=== PATIENT | male | born 1950 | race Caucasian/White ===

== ENCOUNTER 2019-08-12 19:47 | Emergency (ER) | payer OTHER ==
[~2019-08-12] VITALS: Ht 182.9 cm; Wt 110.9 kg
[2019-08-12 19:49] VITALS: Ht 182.9 cm; Wt 110.9 kg
[2019-08-12] MEDS ORDERED: INVEGA 3 MG ER T3 MG PO (19:52)
[2019-08-12] MEDS ORDERED: OMEPRAZOLE20 M1 PO (19:52)
[2019-08-12] MEDS ORDERED: [UNRECOGNIZED DRUG - REMARK] (19:53)
[2019-08-12] MEDS ORDERED: UNK BP MED (19:53)
[2019-08-12 20:07] LABS: BASOPHILS 0.3 % (0-2); EOSINOPHILS 4.4 % (0-7); HEMATOCRIT 49.5 % (42.0-54.0); HEMOGLOBIN 16.5 g/dL (13.5-17.5); IMMATURE GRANULOCYTES 0.3 % (0-5); LYMPHOCYTES 26.1 % (15-50); MCH 30.8 pg (26.0-34.0); MCHC 33.3 g/dL (31.0-37.0); MCV 92.4 fL (80.0-100.0); MEAN PLATELET VOLUME 9.4 fL (7.4-10.4); NEUTROPHILS 61.9 % (40-80); PLATELET COUNT 206 10x3/uL (130-400); RBC 5.36 10x6/uL (4.20-6.10); WBC 10.4 10x3/uL (4.8-10.8)
[2019-08-12 20:16] LABS: CALC OSMOLALITY 276 mosm/kg (275-300); CARBON DIOXIDE 23.4 mmol/L (21.0-32.0); CHLORIDE - SERUM 106 mmol/L (98-107); GLUCOSE 130 mg/dL (74-106); POTASSIUM - SERUM 3.8 mmol/L (3.5-5.1); SODIUM 138 mmol/L (136-145); UREA NITROGEN 9 mg/dL (7-18); eGFR NON AFRICAN AMERICAN 79 mL/min (90-120)
[2019-08-12 20:30] LABS: ALBUMIN 3.5 g/dL (3.4-5.0); ALKALINE PHOSPHATASE 91 U/L (30-120); ALT (SGPT) 12 U/L (10-68); BILIRUBIN - TOTAL 0.39 mg/dL (0.2-1.3); MAGNESIUM - SERUM 2.1 mg/dL (1.8-2.4); PRO BNP 28 pg/mL (0-125); PROTEIN - SERUM 6.8 g/dL (6.4-8.2); TROPONIN-I < 0.017 ng/mL (0.000-0.060)
[2019-08-12] MEDS ORDERED: COMBIVENT RESPIM4 GM INH (22:14)
[2019-08-12] MEDS ORDERED: PROAIR HFA8.5 G1 INH (22:15)
[2019-08-12] MEDS ORDERED: AZITHROMYCIN500 MG PO (22:15)
[2019-08-12 22:17] VITALS: BP 108/74
== END 2019-08-12 22:17 | disposition home or self-care (01) ==
LOC: D.ER 19:47
PROVIDERS: Family Medicine
DX: J44.9 Chronic obstructive pulmonary disease, unspecified (principal); J98.59 Other diseases of mediastinum, not elsewhere classified

== ENCOUNTER → 2019-09-01 10:08 | Outpatient (CLI) | payer OTHER ==
[2019-08-12 19:49] VITALS: BMI 33.1
[~2019-09-01 10:08] MED LIST: AZITHROMYCIN500 MG PO; COMBIVENT RESPIM4 GM INH; INVEGA 3 MG ER T3 MG PO; OMEPRAZOLE20 M1 PO; PROAIR HFA8.5 G1 INH; UNK BP MED; [UNRECOGNIZED DRUG - REMARK]
[2019-09-01 11:03] LABS: BASOPHILS 0.2 % (0-2); EOSINOPHILS 3.4 % (0-7); HEMATOCRIT 50.9 % (42.0-54.0); HEMOGLOBIN 16.6 g/dL (13.5-17.5); IMMATURE GRANULOCYTES 0.3 % (0-5); LYMPHOCYTES 24.1 % (15-50); MCH 30.5 pg (26.0-34.0); MCHC 32.6 g/dL (31.0-37.0); MCV 93.6 fL (80.0-100.0); MEAN PLATELET VOLUME 9.4 fL (7.4-10.4); PLATELET COUNT 235 10x3/uL (130-400); RBC 5.44 10x6/uL (4.20-6.10); WBC 9.4 10x3/uL (4.8-10.8)
[2019-09-02 07:09] LABS: ALPHA FETOPROTEIN -(TUMOR MRK) 2.1 ng/mL (0.0-8.3); HCG-QUANTITATIVE(TUMOR MARKER) <1 mIU/mL (0-3)
--- NOTE | 2019-09-04 09:57 | EC ---
PATIENT:SOTERO VERGARA DATE OF SERVICE: 09/01/19 SEX: M MEDICAL RECORD: [id number] DATE OF : [birth year] LOCATION:D. AGE OF PATIENT: 68 ADMISSION DATE: 09/01/19 REFERRING PHYSICIAN: INTERPRETING PHYSICIAN: NETTA DOMINGUEZ MD ECHOCARDIOGRAM REPORT ECHO CHARGES 4 ECHO COMPLETE Date: 09/01/19 CLINICAL DIAGNOSIS: DYSPNEA ECHOCARDIOGRAPHIC MEASUREMENTS (adult normal given) AC root (d.<3.7cm) 2.8 cm LV Septum d (<1.2 cm> 1.4 cm Valve Excursion 1.7 cm LV Septum (systole) 1.7 cm Left Atria (s.<4.0cm> 3.0 cm LVPW d(<1.2cm) 1.2 cm RV (d.<2.3cm) 3.0 cm LVPW (sytole) 1.3 cm LV diastole(<5.6CM) 4.6 cm MV E-F(>70mm/sec) cm LV systole 3.6 cm LVOT Diameter 2.1 cm MV exc.(>10mm) cm Est.ejection fraction (50-75%) % DOPPLER: LVIT cm/sec A 72 cm/sec E 61 cm/sec LA cm/sec RVSP 16.6 mmHg LVOT 118 cm/sec AOP1/2T m/s Asc. Ao 138 cm/sec RVOT 68 cm/sec RA cm/sec PA 82 cm/sec AV Gradient Peak 7.6 mmHg AV Mean 4.0 mmHg AV Area 3.6 cm MV Gradient Peak 1.9 mmHg MV Mean 1.2 mmHg MV Area cm COMMENTS: Manager Social Services: Radha [facility] Router Setter: 3 Dr. Aquino TAPE# PACS Pericardial Effusion N DATE OF SERVICE: Adequate 2D, color flow imaging, spectral Doppler, and M-Mode. LVH is present. LV internal dimensions are normal. Wall motion is normal. EF greater than or equal to 55%. Aortic valve is tricuspid. No evidence of stenosis by Doppler interrogation. Left atrium is normal at 3.0 cm. Mitral valve shows no prolapse. Trace MR. Right-sided chambers are grossly normal. Trace TR. ECHOCARDIOGRAM REPORT [id number] SOTERO VERGARA TRANSINT:[id number] Voice Confirmation ID: [id number] DOCUMENT ID: [id number] NETTA DOMINGUEZ MD at 0957 CC: [id number] DICTATION DATE: 09/02/19 1022 TEXTILE CUTTING MACHINE OPERATOR: 09/02/19 1321 DEP CLI 09/01/19 [id number] [place] [address]
[2019-09-04 10:08] LABS: ANA REFLEX - DIRECT Negative (Negative)
== END | disposition home or self-care (01) ==
LOC: D.US 10:08 → D.LAB 14:45 → D.RT 15:00
PROVIDERS: ATTEND Internal Medicine Pulmonary Disease
DX: J44.9 Chronic obstructive pulmonary disease, unspecified (principal); J84.112 Idiopathic pulmonary fibrosis; R06.00 Dyspnea, unspecified; R22.2 Localized swelling, mass and lump, trunk

== ENCOUNTER 2019-09-06 13:24 | Inpatient (IN) | payer OTHER ==
[~2019-09-06] VITALS: Ht 182.9 cm; Wt 111.6 kg
[2019-09-06] MEDS ORDERED: NORVASC5 MG PO (13:47)
[2019-09-06] MEDS ORDERED: LIPITOR40 MG PO (13:47)
[2019-09-06] MEDS ORDERED: FLUTICASONE PRO16 GM NASAL (13:48)
[2019-09-06] MEDS ORDERED: BEVESPI AEROS10.7 GM INH (13:49)
[2019-09-06] MEDS ORDERED: PROTONIX40 MG PO (13:49)
[2019-09-06 15:13] LABS: BILIRUBIN NEGATIVE (NEGATIVE); GLUCOSE NEGATIVE (NEGATIVE); KETONE NEGATIVE (NEGATIVE); NITRITE NEGATIVE (NEGATIVE); UROBILINOGEN NORMAL (NORMAL)
[2019-09-06 15:30] LABS: HEMATOCRIT 50.6 % (42.0-54.0); MCH 30.6 pg (26.0-34.0); MCHC 33.6 g/dL (31.0-37.0); MEAN PLATELET VOLUME 9.3 fL (7.4-10.4); RBC 5.56 10x6/uL (4.20-6.10); RDW 13.8 % (11.5-14.5); WBC 8.9 10x3/uL (4.8-10.8)
[2019-09-06 15:40] LABS: APTT 35.3 SECONDS (22.8-39.4); INR 0.96 (0.85-1.17); PROTIME 12.8 SECONDS (11.6-15.0)
[2019-09-06 15:57] LABS: ALBUMIN 3.9 g/dL (3.4-5.0); ALKALINE PHOSPHATASE 105 U/L (30-120); ALT (SGPT) 20 U/L (10-68); BILIRUBIN - TOTAL 0.71 mg/dL (0.2-1.3); CALC OSMOLALITY 275 mosm/kg (275-300); CALCIUM 8.7 mg/dL (8.5-10.1); CARBON DIOXIDE 26.8 mmol/L (21.0-32.0); CHLORIDE - SERUM 103 mmol/L (98-107); CREATININE - SERUM 0.9 mg/dL (0.6-1.3); GLUCOSE 91 mg/dL (74-106); POTASSIUM - SERUM 3.9 mmol/L (3.5-5.1); PROTEIN - SERUM 7.8 g/dL (6.4-8.2); SODIUM 139 mmol/L (136-145); UREA NITROGEN 7 mg/dL (7-18); eGFR NON AFRICAN AMERICAN 89 mL/min (90-120)
[2019-09-08] VITALS (32 sets, daily range): BP systolic 104–172; BP diastolic 62–123; BMI 33.3; BMI 33.4
--- NOTE | 2019-09-08 13:13 | NUR ---
1115-ARRIVED WITH OR TEAM-PLACED TO MONITOR SR-TEMP NOTED 35C-PLACED ON CARLTON FRANCOIS 1-R IJ IN PLACE-NTG STARTED FOR ABP 172 SYS BY OR TEAM-SR ON MONITOR-PLACED TO VENT-CT TO 20CM SUCTION-SNG DRAINAGE NOTED-NO AIR LEAK-CRITICORE CASTRO IN PLACE 1130-CXR 1135 ABG-SHOWN TO DR OGLESBY 1155 ABG REPEATED 1245-CPAP AWAKE AND ALERT-NODS APPROPRIATELY-COUGH AND GAG REFLEX PRESENT
--- NOTE | 2019-09-08 19:30 | NUR ---
REPORT REC'D AND CARE ASSUMED, REC'D PT ON 6 LITER NC, AWAKENS TO VERBAL STIMULI, ORIENTED X 4, FALLS BACK TO SLEEP WITHOUT CONTINUOUS CONVERSATION, RIJOSEL, DRSG CDI, MIDSTERNAL DRSG CDI, MEDIASTINAL CT X 1 TO 20CM H2O SUCTION, SANGUINOUS DRAINAGE PRESENT, CRITICORE CASTRO PATENT DRAINING CLEAR YELLOW URINE, PPP, SR UP X 2, BED IN LOW POSITION, CALL LIGHT IN REACH.
--- NOTE | 2019-09-08 20:05 | NUR ---
EVENING MEDS GIVEN, FLONASE UNAVAILABLE IN PYXIS OR CASSETTE, PHARMACY NOTIFIED.
--- NOTE | 2019-09-08 23:00 | NUR ---
REASSESSMENT COMPLETED, PT REPOSITIONED UP IN BED AND ONTO LEFT SIDE, DEEP BREATHING AND COUGHING DONE, PT COMPLAINS OF CHEST BEING SORE "WHEN I MOVE", REMINDED PT OF WAITER/WAITRESS TOURIST CLASS BUTTON, STATES "I KNOW, I AM", ICE WATER PROVIDED, BP STABLE WILL CONT TO MONITOR FOR CHANGES.
[2019-09-09] VITALS (24 sets, daily range): BP systolic 109–133; BP diastolic 59–82
--- NOTE | 2019-09-09 01:30 | NUR ---
PT RESTING EYES CLOSED, RESP EVEN AND UNLABORED, VSS, WILL MONITOR FOR CHANGES.
--- NOTE | 2019-09-09 03:15 | NUR ---
RADIOLOGY @ BS FOR AM CXR, REASSESSMENT COMPLETED, PT REPOSITIONED FOR COMFORT, COUGHING AND DEEP BREATHING DONE, VSS.
--- NOTE | 2019-09-09 05:55 | NUR ---
AM LAB DRAWN FROM CVL AND AM MEDS GIVEN ORDERED, PT REPOSITIONED UP IN BED AND ONTO BACK FOR COMFORT, VSS, CALL LIGHT AND MANAGER FIBER BUTTON IN REACH.
[2019-09-09 06:22] LABS: HEMATOCRIT 45.3 % (42.0-54.0); HEMOGLOBIN 14.4 g/dL (13.5-17.5); MCH 29.8 pg (26.0-34.0); MCHC 31.8 g/dL (31.0-37.0); MCV 93.6 fL (80.0-100.0); MEAN PLATELET VOLUME 9.4 fL (7.4-10.4); RBC 4.84 10x6/uL (4.20-6.10); RDW 14.3 % (11.5-14.5)
[2019-09-09 06:42] LABS: ALBUMIN 3.1 g/dL (3.4-5.0); ALKALINE PHOSPHATASE 78 U/L (30-120); ALT (SGPT) 14 U/L (10-68); BILIRUBIN - TOTAL 0.77 mg/dL (0.2-1.3); CALC OSMOLALITY 271 mosm/kg (275-300); CALCIUM 7.9 mg/dL (8.5-10.1); CHLORIDE - SERUM 103 mmol/L (98-107); CREATININE - SERUM 0.7 mg/dL (0.6-1.3); GLUCOSE 126 mg/dL (74-106); PROTEIN - SERUM 6.5 g/dL (6.4-8.2); SODIUM 136 mmol/L (136-145); UREA NITROGEN 8 mg/dL (7-18); eGFR NON AFRICAN AMERICAN > 90 mL/min (90-120)
[2019-09-09 06:47] LABS: CARBON DIOXIDE 27.3 mmol/L (21.0-32.0)
--- NOTE | 2019-09-09 10:07 | NUR ---
ASSISTED UP TO BEDSIDE CHAIR WITH PHYSICAL THERAPY TOLERATED WELL- DR REDMAN AT BEDSIDE AT BEDSIDE
--- NOTE | 2019-09-09 14:58 | NUR ---
1330-DR THURMAN AT BEDSIDE-PT UP IN CHAIR-SUCTION REMOVED OFF CHEST TUBE CONTAINER DIRECTED-NO AIR LEAK NOTED-R RADIAL CASSIDY D/C ORDERED AND PER PROTOCOL-TOLERATED WELL BY PT -CVP READINGS D/C-R JUGULAR CVL INFUSING PLASMALYTE AT 30ML/H MORPHINE INF[employer]TRY [employer] OFFICER AT 1MG/Q 10 NEEDED 1400-PT AMBULATED IN HALLWAY WITH PHYSCIAL THERAPY ON O2 AT 4L -ASSISTED BACK TO BED-TOLERATED WELL-STATED INFANTRY [employer] OFFICER IS NOT HELPING WITH PAIN -TORADOL 30IV GIVEN ORDRED-RANKS 09/23 AT THIS TIME
--- NOTE | 2019-09-09 19:00 | NUR ---
REPORT RECEIVED. RECEIVED PATIENT IN BED RESTING WITH EYES CLOSED. EASILY ROUSED AND ALERT. ORIENTED X 4. ASSESSMENT COMPLETED PER FLOW SHEET WITH NO ACUTE DISTRESS OBSERVED. MONITORS CONNECTED TO PATIENT WITH ALARMS SET. VSS. CT INTACT/SECURE/PATENT DRAINING SMALL AMOUNT OF SEROSANGENOUS FLUID INTO COLLECTION CHAMBER. TO WATER SEAL WITH NO AIR LEAK OBSERVED. CALL LIGHT IN REACH AND ABLE TO UTILIZE TO MAKE NEEDS KNOWN.
--- NOTE | 2019-09-09 21:00 | NUR ---
RESTING WITH EYES CLOSED, EASILY ROUSED AND ALERT. VSS. PM MEDS TAKEN WITHOUT DIFF. CALL LIGHT IN REACH
--- NOTE | 2019-09-09 23:00 | NUR ---
REASSESSMENT COMPLETED PER FLOW SHEET WITH NO ACUTE DISTRESS OBSERVED. VSS. CALL LIGHT IN REACH
[2019-09-10] VITALS (15 sets, daily range): BP systolic 97–134; BP diastolic 55–87
--- NOTE | 2019-09-10 01:00 | NUR ---
RESTING WITH EYES CLOSED, EASILY ROUSED AND ALERT. VSS. CALL LIGHT IN REACH
--- NOTE | 2019-09-10 03:00 | NUR ---
AWAKE AND ALERT. SITTING UP IN BED. REASSESSMENT COMPLETED PER FLOW SHEET WITH NO ACUTE DISTRESS OBSERVED. VSS. CALL LIGHT IN REACH
--- NOTE | 2019-09-10 05:00 | NUR ---
PATIENT AWAKE AND ALERT. ATTEMPTING TO GET OUT OF BED. WHEN ASKED IF NEEDED ASSISTANCE STATED" I HAVE TO GET UP AND GO PEE" " I PULLED THAT CATHETER OUT" GENITAL AREA EXAMINED WITH BRIGHT RED BLEEDING OBSERVED FROM URETHRA AND LARGE AMOUNT OF BRIGHT RED BLOOD OBSERVED ON PAD/BEDDING. NO WOUND OBSERVED TO EXTERNAL URINARY MEATUS. FC WITH BULB FULLY INFLATED/INTACT. PATIENT DENIES PAIN. VSS. IS ORIENTED TO PERSON PLACE AND SITUATION WITH SOME CONFUSION TO TIME. BLEEDING STOPPED WITHIN MINUTES. 0530 CHG BATH GIVEN AND ASSISTED UP TO BEDSIDE CHAIR. CHENG WELL. CALL LIGHT IN REACH. WILL MONITOR
[2019-09-10 06:05] LABS: HEMATOCRIT 43.1 % (42.0-54.0); HEMOGLOBIN 13.6 g/dL (13.5-17.5); MCH 29.7 pg (26.0-34.0); MCHC 31.6 g/dL (31.0-37.0); MCV 94.1 fL (80.0-100.0); MEAN PLATELET VOLUME 9.4 fL (7.4-10.4); RBC 4.58 10x6/uL (4.20-6.10); RDW 13.9 % (11.5-14.5); WBC 10.5 10x3/uL (4.8-10.8)
[2019-09-10 06:26] LABS: ALBUMIN 2.9 g/dL (3.4-5.0); ALKALINE PHOSPHATASE 73 U/L (30-120); ALT (SGPT) 15 U/L (10-68); BILIRUBIN - TOTAL 0.88 mg/dL (0.2-1.3); CALC OSMOLALITY 271 mosm/kg (275-300); CARBON DIOXIDE 27.3 mmol/L (21.0-32.0); CHLORIDE - SERUM 103 mmol/L (98-107); CREATININE - SERUM 0.9 mg/dL (0.6-1.3); GLUCOSE 112 mg/dL (74-106); POTASSIUM - SERUM 4.1 mmol/L (3.5-5.1); PROTEIN - SERUM 6.4 g/dL (6.4-8.2); SODIUM 136 mmol/L (136-145); UREA NITROGEN 11 mg/dL (7-18); eGFR NON AFRICAN AMERICAN 89 mL/min (90-120)
--- NOTE | 2019-09-10 09:50 | NUR ---
0715-PT EXHIBITING IMPULSIVE BEHAVIOR-REMOVED CABLES-PLACED ON PORTABLE TELEMETRY-PORT O2SAT -REMOVED OBSTACLES-PROVIDED WITH ADULT DEPENDS AND URINAL DR THURMAN AT BEDSIDE-PT RETURNED TO BED WITHOUT ASSIST-CHEST TUBE REMOVED BY DR THURMAN -TOLERATED WELL-R IJ SALINE LOCKED-OSP1YPI DISCONTINUED-L HAND IV NOT PATENT AND DISCONTINUED-L UPPER IV 20 G STARTED
--- NOTE | 2019-09-10 09:55 | NUR ---
AMBULATED ON 2 L WITH PHYSICAL THERAPY-REMAINS ON 2L SAT 94%
--- NOTE | 2019-09-10 12:54 | NUR ---
CABLES REMAIN OFF PT FOR SAFETY-AGREES TO WEAR O2-SPOT CHECKS FOR BP-PORT TELEMETRY-AND PORTABLE O2
--- NOTE | 2019-09-10 15:10 | NUR ---
1100-PT REQUESTING PO PAIN MED-BROUGHT PERCOCET 10 ORDERED-REFUSED STATED WILL MAKE ME CRAZY-REQUESTED TYLENOL ONLY-TYLENOL PO 500MG GIVEN 1300-AMBULATING WITH PHYSICAL THERAPY-REMAINS ON PORT TELEMETRY-O2 SAT-O2 AT 2L-AMBULATING IN ROOM [id number] PUTTING STREET CLOTHES ON-STOPPED PT AND EXPLAINED STILL IN ICU WITH MONITORS AND INCISION-PT AGREED AT THIS TIME TO LEAVE HOSPITAL GOWN ON O2 ON AND INCREASED TO 4L-SAT 86% AND INCREASED CONFUSION- 1500-CONTINUES TO PACE ROOM-O2 AT 4L REMAINS IN PLACE-COMPLIANT WITH RESP RX AND INCENTIVE-TV 1500ML-
--- NOTE | 2019-09-10 18:24 | NUR ---
VOMITED X2-PT STATED HAMBURGER TASTED FUNNY-DR THURMAN NOTIFIED-ORDER RECIEVED-ZOFRAN 4MG IVP GIVEN-INFORMED PT NOTHING TO EAT OR DRINK TIL SEEN BY MD ON MORNING ROUNDS-REMAINS ON PORTABLE TELEMETRY AND SATS-SPOT CHECK NIBP-O2 AT 4L-IMPULSIVE TO RESTROOM-RAILS REMAIN DOWN TO PREVENT CLIMBING-N SLIP SOCKS IN PLACE-MEDIASTINAL CHEST INCISION INTACT
--- NOTE | 2019-09-10 19:00 | NUR ---
REPORT RECEIVED. RECEIVED PATIENT IN BED. RESTING WITH EYES CLOSED, EASILY ROUSED AND ALERT. ORIENTED X 4. ASSESSMENT COMPLETED PER FLOW SHEET WITH NO ACUTE DISTRESS OBSERVED. MONITORS CONNECTED TO PATIENT WITH ALARMS SET. VSS. CALL LIGHT IN REACH AND ABLE TO UTILIZE TO MAKE NEEDS KNOWN.
--- NOTE | 2019-09-10 20:00 | NUR ---
IV LFA OUT, CATH INTACT. 20 GAUGE IV INITIATED NAVEED. CHENG WELL
--- NOTE | 2019-09-10 21:00 | NUR ---
RESTING WITH EYES CLOSED, EASILY ROUSED AND ALERT. VSS. PM MEDS TAKEN WITHOUT DIFF. CALL LIGHT IN REACH
--- NOTE | 2019-09-10 23:00 | NUR ---
RESTING WITH EYES CLOSED, EASILY ROUSED AND ALERT. REASSESSMENT COMPLETED PER FLOW SHEET WITH NO ACUTE DISTRESS OBSERVED. VSS. CALL LIGHT IN REACH
[2019-09-11] VITALS (12 sets, daily range): BP systolic 105–131; BP diastolic 53–94; Ht 182.9 cm; Wt 111.6 kg
--- NOTE | 2019-09-11 01:00 | NUR ---
RESTING WITH EYES CLOSED EASILY ROUSED AND ALERT. VSS. CALL LIGHT IN REACH
--- NOTE | 2019-09-11 03:00 | NUR ---
RESTING WITH EYES CLOSED, EASILY ROUSED AND ALERT. REASSESSMENT COMPLETED PER FLOW SHEET WITH NO ACUTE DISTRESS OBSERVED. VSS. CALL LIGHT IN REACH
--- NOTE | 2019-09-11 03:45 | NUR ---
PT TRANSFERRED TO RADIOLOGY DEPT FOR XRAY VIA . ASSISTED BY RADIOLOGY STAFF.
--- NOTE | 2019-09-11 04:05 | NUR ---
RETURNED TO ROOM CV6. UP TO BEDSIDE CHAIR. CHENG WELL CALL LIGHT IN REACH
--- NOTE | 2019-09-11 05:00 | NUR ---
UP IN BEDSIDE CHAIR. AWAKE AND ALERT. VSS. CALL LIGHT IN REACH
[2019-09-11 07:26] LABS: HEMATOCRIT 42.3 % (42.0-54.0); HEMOGLOBIN 13.8 g/dL (13.5-17.5); MCH 29.9 pg (26.0-34.0); MCHC 32.6 g/dL (31.0-37.0); MCV 91.8 fL (80.0-100.0); MEAN PLATELET VOLUME 9.6 fL (7.4-10.4); RBC 4.61 10x6/uL (4.20-6.10); RDW 13.6 % (11.5-14.5)
[2019-09-11 07:45] LABS: ALKALINE PHOSPHATASE 69 U/L (30-120); ALT (SGPT) 16 U/L (10-68); BILIRUBIN - TOTAL 0.88 mg/dL (0.2-1.3); CALC OSMOLALITY 274 mosm/kg (275-300); CARBON DIOXIDE 27.4 mmol/L (21.0-32.0); CHLORIDE - SERUM 100 mmol/L (98-107); CREATININE - SERUM 0.7 mg/dL (0.6-1.3); GLUCOSE 131 mg/dL (74-106); POTASSIUM - SERUM 3.9 mmol/L (3.5-5.1); PROTEIN - SERUM 6.8 g/dL (6.4-8.2); SODIUM 137 mmol/L (136-145); UREA NITROGEN 11 mg/dL (7-18); eGFR NON AFRICAN AMERICAN > 90 mL/min (90-120)
--- NOTE | 2019-09-11 08:22 | NUR ---
0700 PT RECIEVED ALERT AN DORIENTED VSS DENIES PAIN, ON PORTABLE TELEMETRY, ROOM AIR, LUE PIV SL, MIDSTERNAL DRESSING CDI, SEE SHIFT ASSESSMENT FOR DETAILS 0820 AM MEDS GIVEN, REGULAR DIET PER DR THURMAN, WILL CONTINUE TO MONITOR
[2019-09-11] MEDS ORDERED: ULTRAM50 MG PO (12:16)
--- NOTE | 2019-09-11 13:37 | NUR ---
DC INSTRUCTIONS REVIEWED WITH PT, PIV DCD, ATTEMPTED TO SCHEDULE FOLLOW UP WITH DR BECKER OFFICEX3 AND WAS TOLD STAFF WAS NOT BACK FROM [facility], SPOKE WITH CHARGE NURSE WHO STATED TO HAVE PT SCHEDULE OWN APPT. PT DCD AT THIS TIME
--- NOTE | 2019-09-11 17:17 | MORECARE ---
CASE MANAGEMENT DISCHARGE SUMMARY PATIENT: SOTERO VERGARA UNIT: [id number] ADM DATE: 09/08/19 AGE: 69 : 51 SEX: M ROOM/BED: [facility] AUTHOR: CYNDY BRAXTON PHYSICIAN: REFERRING PHYSICIAN: JOSIANE OGLESBY MD DATE OF SERVICE: 09/11/19 Discharge Plan Patient Name: SOTERO VERGARA [facility] [facility] 1950 Planned Disposition: Anticipated Discharge Date: Discharge Date: 09/11/2019 Expected LOS: Initial Reviewer: [email or web address] Initial Review Date: 09/08/2019 Generated: 09/11/19 6:17 pm Patient Name: SOTERO VERGARA Page 15957 at 1717 All edits/amendments must be made on the electronic document DICTATION DATE: 09/11/191716 INSTRUCTION ASSISTANT PRINCIPAL: MAYO 09/11/191716 RPT#: [id number] DC DATE:09/11/19 STATUS: DIS IN [facility] [address] [facility] [place] [address] END OF REPORT
--- NOTE | 2019-09-11 17:24 | MORECARE ---
CASE MANAGEMENT DISCHARGE SUMMARY PATIENT: SOTERO VERGARA UNIT: [id number] ADM DATE: 09/08/19 AGE: 69 : 51 SEX: M ROOM/BED: D[facility] AUTHOR: IRAIS,DOC PHYSICIAN: REFERRING PHYSICIAN: JOSIANE OGLESBY MD DATE OF SERVICE: 09/11/19 Discharge Plan Patient Name: SOTERO VERGARA Facility: [facility]:[place] : 1950 Planned Disposition: Anticipated Discharge Date: Discharge Date: 09/11/2019 Expected LOS: Initial Reviewer: [email or web address] Initial Review Date: 09/08/2019 Generated: 09/11/19 6:24 pm Comments DCP- Discharge Planning Updated by [email or web address]: Renée Prajapati on 09/11/19 4:[address] Patient Name: SOTERO VERGARA Admission Status: Urgent Accout number: [id number] Admission Date: 09-08-2019 : 1950 Admission Diagnosis: Attending: JOSIANE OGLESBY Current LOS: 3 Anticipated DC Date: Planned Disposition: Primary Insurance: [employer] Discharge Planning Comments: CM met with patient at bedside after explaining CM role and obtaining verbal consent. Patient lives at home with his where he is independent with his care and plans to return there upon discharge. Patient feels this would be a safe discharge. CM discussed availability / needs of home health and medical equipment. Patient states that he has home/ portable 02 with [employer]. He also states that he CPAP but doesn't use it. Patient denies any discharge needs at this time. Patient states he will have his family drive him home upon discharge. D/C IMM signed CM will continue to follow and assist as needed with discharge planning / needs. Food Service Director: Renée Prajapati DCPIA - Discharge Planning Initial Assessment Updated by [email or web address]: Renée Prajapati on 09/11/19 5:19 pm * Is the patient Alert and Oriented? Yes * How many steps to enter\exit or inside your home? * PCP Steve * Pharmacy [facility] * Preadmission Environment Home with Family * ADLs Independent * Equipment Oxygen * Other Equipment CPAP * List name and contact numbers for known caregivers / representatives who currently or will assist patient after discharge: DANDY VERGARA - [facility]- [phone] * Verbal permission to speak to the caregivers and representatives has been obtained from the patient. Yes * Community resources currently utilized None * Additional services required to return to the preadmission environment? No * Can the patient safely return to the preadmission environment? Yes * Has this patient been hospitalized within the prior 30 days at any hospital? No Last DP export: 09/11/19 4:17 p Patient Name: SOTERO VERGARA Page [id number] at 1724 All edits/amendments must be made on the electronic document DICTATION DATE: 09/11/191723 TMR TEACHER: MAYO 09/11/191723 RPT#: [id number] DC DATE:09/11/19 STATUS: DIS IN [facility] [address] [place] [address] END OF REPORT
--- NOTE | 2019-09-11 17:32 | MORECARE ---
CASE MANAGEMENT DISCHARGE SUMMARY PATIENT: SOTERO VERGARA UNIT: [id number] ADM DATE: 09/08/19 AGE: 69 : 51 SEX: M ROOM/BED: D.[facility] AUTHOR: IRAIS,DOC PHYSICIAN: REFERRING PHYSICIAN: JOSIANE OGLESBY MD DATE OF SERVICE: 09/11/19 Discharge Plan Patient Name: SOTERO VERGARA Facility: [facility]:[place] : 1950 Planned Disposition: Anticipated Discharge Date: Discharge Date: 09/11/2019 Expected LOS: Initial Reviewer: [email or web address] Initial Review Date: 09/08/2019 Generated: 09/11/19 6:31 pm Comments DCP- Discharge Planning Updated by [email or web address]: Renée Prajapati on 09/11/19 4:[address] Patient Name: SOTERO VERGARA Admission Status: Urgent Accout number: [id number] Admission Date: 09-08-2019 : 1950 Admission Diagnosis: Attending: JOSIANE OGLESBY Current LOS: 3 Anticipated DC Date: Planned Disposition: Primary Insurance: [employer] Discharge Planning Comments: CM met with patient at bedside after explaining CM role and obtaining verbal consent. Patient lives at home with his where he is independent with his care and plans to return there upon discharge. Patient feels this would be a safe discharge. CM discussed availability / needs of home health and medical equipment. Patient states that he has home/ portable 02 with [employer]. He also states that he CPAP but doesn't use it. Patient denies any discharge needs at this time. Patient states he will have his family drive him home upon discharge. D/C IMM signed CM will continue to follow and assist as needed with discharge planning / needs. Professional Nurse: Renée Prajapati DCPIA - Discharge Planning Initial Assessment Updated by [email or web address]: Renée Prajapati on 09/11/19 5:19 pm * Is the patient Alert and Oriented? Yes * How many steps to enter\exit or inside your home? * PCP Steve * Pharmacy [facility] * Preadmission Environment Home with Family * ADLs Independent * Equipment Oxygen * Other Equipment CPAP * List name and contact numbers for known caregivers / representatives who currently or will assist patient after discharge: DANDY VERGARA - [facility]- [phone] * Verbal permission to speak to the caregivers and representatives has been obtained from the patient. Yes * Community resources currently utilized None * Additional services required to return to the preadmission environment? No * Can the patient safely return to the preadmission environment? Yes * Has this patient been hospitalized within the prior 30 days at any hospital? No Coverage Notice Reviewer: [email or web address] Carey Prajapati Notice Issued Date-Time: 09/11/2019 11:15 Notice Type: IM Discharge Notice Notice Delivered To: Patient Relationship to Patient: Self Horse Wrangler Name: Delivery Method: HAND - Hand Delivered Mary Days: Prior Verbal Notification: Recipient Understood Notice: Yes Recipient Signature: Yes Med Rec Note Co-signed by Attending: Coverage Notice Comment: Last DP export: 09/11/19 4:24 p Patient Name: SOTERO VERGARA Page 75816 at 1732 All edits/amendments must be made on the electronic document DICTATION DATE: 09/11/191730 FITNESS SERVICES MANAGER: MAYO 09/11/191730 RPT#: [id number] DC DATE:09/11/19 STATUS: DIS IN [facility] [address] [place] [address] END OF REPORT
--- NOTE | 2019-09-12 08:35 | TEE ---
PATIENT:SOTERO VERGARA MEDICAL RECORD: [id number] LOCATION:[place] [address] AGE OF PATIENT: 69 ADMISSION DATE: 09/08/19 SEX: M REFERRING PHYSICIAN: INTERPRETING PHYSICIAN: NETTA DOMINGUEZ MD TRANSESOPHAGEAL ECHOCARDIOGRAM Date: 09/08/19 SHARON CHARGE Y INDICATIONS: MEDIASTEINOTOMY PREMEDICATIONS: PATIENT'S RESPONSE PROCEDURE DOPPLER MEASUREMENTS: LVIT LA PA RA LVOT RVOT Asc. Ao AV Gradient Peak AV Mean AV Area MV Gradient Peak MV Mean MV Area INTERPRETATION: Doppler: 2-D: COLOR FLOW DOPPLER NORMAL SALINE STUDY: MISCELLANOUS: DIAGNOSIS: PLAN: Home Health Nurse:3 Dr. Aquino Hall Monitor: Radha MONTOYA COMMENTS: DATE OF SERVICE: 09/11/2019 PROCEDURE: Intraoperative SHARON, this is preoperative only. Preoperative echo shows LVH is present. LV internal dimension is normal. Wall motion is normal. EF is greater than or equal to 55%. Aortic valve is tricuspid with good valve excursion. No significant AI. Left atrium grossly appears normal. Mitral valve appears normal with good valve excursion. He had trivial MR. Right-sided chamber is grossly normal. No significant pericardial TRANSESOPHAGEAL ECHOCARDIOGRAM REPORT [id number] SOTERO VERGARA effusion is noted. TRANSINT:[id number] Voice Confirmation ID: [id number] DOCUMENT ID: [id number] at 0835 CC: [id number] DICTATION DATE: 09/11/19 0841 AERIAL SURVEY TECHNICIAN: 09/12/19 0007 DIS IN 09/11/19 [id number] [place] [address]
--- NOTE | 2019-09-12 10:32 | OP ---
PATIENT NAME: SOTERO VERGARA MEDICAL RECORD: [id number] :52 LOCATION:[facility].CV06 ADMISSION DATE:09/08/19 SURGEON: JOSIANE DALY MD DATE OF OPERATION: 09/08/2019 SURGEON: Josiane Daly MD ANESTHESIA: General endotracheal, Dr. Hensley. OPERATION PERFORMED: 1. Median sternotomy. 2. Radical thymectomy. 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 FINDINGS OF THE OPERATION: A thymic tumor appears to be encapsulated. Several lymph nodes were taken with the specimen, two separately. ESTIMATED BLOOD LOSS: Less than 100 mL. DESCRIPTION OF PROCEDURE: After informed consent, adequate preoperative medication, evaluation, the patient was brought to the operating room, placed on the table in the supine position. After induction of general endotracheal anesthesia and application of appropriate monitoring devices, the chest, neck, abdomen were prepped and draped in a sterile field, utilizing Betadine scrub, alcohol, and Betadine solution. Betadine-impregnated drape was also used. Median sternotomy incision was made and dissection carried down the fascia. Hemostasis was maintained with electrocautery. Sternum was divided. The hemostasis was achieved. A sternal retractor was placed in the wound and the chest examined. 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 Dissection was begun at the diaphragm and dissection was carried cephalad, intra-mediastinum staying out of the pleura. Dissection was then transferred to the neck. The thymic remnants were dissected from the neck and hemostasis achieved with a Harmonic scalpel and clips. The dissection was carried on to the innominate vein, which was dissected free of surrounding structures. The vessels were either divided with 4-0 suture ligature or clips. The dissection was then carried down to the pericardium and the thymus removed. Two lymph nodes in the upper mediastinum were dissected free and sent to pathology as level 3 lymph nodes. Chest was irrigated. A #24 Charles drain was placed in the anterior mediastinum. Chest was again irrigated. Instrument count and sponge count were correct times 2. Chest was closed in layers utilizing #7 wire on the sternum, #2 Vicryl in linea alba and pectoralis fascia. Subcutaneous tissue was approximated with 3-0 Vicryl and skin approximated with 3-0 subcuticular Vicryl. Sterile dressings were applied. The patient tolerated the procedure well and transferred to cardiovascular recovery in satisfactory condition. TRANSINT:[id number] Voice Confirmation ID: [id number] DOCUMENT ID: [id number] OPERATIVE REPORT [id number] SOTERO VERGARA EDWARD MD at 1032 CC: [id number] DICTATION DATE: 09/08/19 1114 ORDER MANAGER: 09/08/19 1504 DIS IN 09/11/19 [place] [address]
== END 2019-09-11 13:39 | disposition home or self-care (01) | DRG 804 ==
LOC: D.CVICU 09-08 06:11 → D.SDCHOLD 09-08 06:11 → D.CVICU 09-08 11:20
PROVIDERS: ADMIT Internal Medicine Cardiovascular Disease; ATTEND Internal Medicine Cardiovascular Disease
PROC: 07TM0ZZ Resection of Thymus, Open Approach (ICD-10-PCS; principal; 2019-09-08 09:00)
DX: D15.0 Benign neoplasm of thymus (principal); J84.112 Idiopathic pulmonary fibrosis; J32.9 Chronic sinusitis, unspecified; J30.9 Allergic rhinitis, unspecified; G47.33 Obstructive sleep apnea (adult) (pediatric); K21.9 Gastro-esophageal reflux disease without esophagitis; I71.4 Abdominal aortic aneurysm, without rupture; J44.9 Chronic obstructive pulmonary disease, unspecified; N40.0 Benign prostatic hyperplasia without lower urinary tract symptoms; I10 Essential (primary) hypertension; R06.89 Other abnormalities of breathing; F20.9 Schizophrenia, unspecified

== ENCOUNTER → 2019-09-27 07:33 | Outpatient (CLI) | payer OTHER ==
[2019-09-11 09:43] VITALS: BMI 33.3
[~2019-09-27 07:33] MED LIST changes: +BEVESPI AEROS10.7 GM INH; +FLUTICASONE PRO16 GM NASAL; +LIPITOR40 MG PO; +NORVASC5 MG PO; +PROTONIX40 MG PO; +ULTRAM50 MG PO
== END | disposition home or self-care (01) ==
LOC: D.RAD 07:33
PROVIDERS: ATTEND Internal Medicine Cardiovascular Disease
DX: Z98.890 Other specified postprocedural states (principal)